=== PATIENT | female | born 1960 | race Caucasian/White ===

== ENCOUNTER 2019-04-09 15:50 | Emergency (ER) | payer MEDICARE ==
[2019-04-09 16:51] LABS: #Lymphocytes 2.3 thou/uL (1.20-3.40); #Monocytes 0.6 thou/uL (0.11-0.59); #Neutrophils 9.7 thou/uL (1.40-6.50); %Basophils 0.1 % (0.0-1.0); %Eosinophils 0.2 % (0.0-10.0); %Monocytes 4.4 % (0.0-10.0); %Neutrophils 77.4 % (42.0-75.0); Hemoglobin 14.7 g/dL (12.0-16.0); Mean Corpuscular HGB CONC 33.5 g/dL (32.0-36.0); Mean Corpuscular Hemoglobin 29.5 pg (27.0-31.0); Mean Corpuscular Volume 87.9 fL (78.0-98.0); Mean Platelet Volume 8.4 fL (7.4-10.4); Platelet Count 334 thou/uL (130-400); RBC Distribution Width 13.8 % (11.5-14.5); Red Blood Cell (RBC) Count 4.99 mill/uL (4.20-5.40); White Blood Cell (WBC) Count 12.6 thou/uL (4.8-10.8)
--- NOTE | 2019-04-09 17:01 | RAD ---
LEFT HIP TWO VIEWS: 04/09/19 HISTORY: Left hip pain. Some slight deformity to the left superior pubic ramus and inferior pubic rami consistent with old in jury. There is also an old fracture of the right inferior pubic ramus. There is no acute findings. IMPRESSION: Old bilateral pubic rami fractures. No acute injury. No significant joint space narrowing. POS: [facility]
[2019-04-09 17:14] LABS: ALT (SGPT) 21 U/L (8-55); AST (SGOT) 16 U/L (5-34); Acetaminophen Less than 6.0 mcg/mL (10.0-30.0); Albumin 4.3 g/dL (3.5-5.0); Alcohol Less than 10 mg/dL (Less than 10); Alkaline Phosphatase 111 U/L (40-110); Anion Gap 17 mmol/L (10-20); BUN (Urea Nitrogen) 16 mg/dL (9.8-20.1); Bilirubin, Total 0.7 mg/dL (0.2-1.2); Calc. Creatinine Clearance 0 mL/min (70-130); Carbon Dioxide 22 mmol/L (22-29); Chloride 102 mmol/L (98-107); Estimated GFR-MDRD 46; Glucose 212 mg/dL (70-105); Potassium 4.4 mmol/L (3.5-5.1); Protein, Total 7.3 g/dL (6.0-8.3); Salicylate Less than 8.0 mg/dL (15.0-30.0); Sodium 137 mmol/L (136-145)
[2019-04-09] MEDS ORDERED: Morphine 10 MG/ML VIAL ONE (17:30)
== END 2019-04-09 18:35 | disposition home or self-care (01) ==
LOC: ERS 15:50
DX: G89.29 Other chronic pain (principal); M25.552 Pain in left hip; I25.10 Atherosclerotic heart disease of native coronary artery without angina pectoris; I10 Essential (primary) hypertension; J40 Bronchitis, not specified as acute or chronic; G47.30 Sleep apnea, unspecified; F32.9 Major depressive disorder, single episode, unspecified; E87.6 Hypokalemia; Z79.899 Other long term (current) drug therapy; Z79.4 Long term (current) use of insulin
CPT/HCPCS: 36415; 80053; 80307; 84443; 85025; J2270

== ENCOUNTER 2019-04-09 19:34 | Emergency (ER) | payer MEDICARE ==
--- NOTE | 2019-04-09 20:22 | CT ---
CT OF BRAIN PERFORMED WITHOUT CONTRAST ENHANCEMENT: 04/09/19 HISTORY: Head injury. COMPARISON: A 01/19/15 study. The ventricular and cisternal system is within normal limits. There are no signs of intracerebral hem orrhage or extra-axial fluid collections. The mastoid air cells and visualized sinuses are clear. IMPRESSION: No acute intracranial abnormalities. POS: [facility]
--- NOTE | 2019-04-09 20:24 | CT ---
CT OF THE CERVICAL SPINE PERFORMED WITHOUT CONTRAST ENHANCEMENT: 04/09/19 HISTORY: Fall getting out of a car with neck pain. Vertebral bodies are normal in height. There is degenerative disc narrowing at C5-6 with posterior os teophytic change at this level. The facets are in normal alignment. There is some mild right sided fo raminal narrowing at the C6-7 level. There is no CT evidence of fracture. Extensive carotid bulb calcifications noted. IMPRESSION: No CT evidence of fracture of the cervical spine. POS: [facility]
--- NOTE | 2019-04-09 20:26 | RAD ---
RIGHT ANKLE THREE VIEWS: 04/09/19 HISTORY: Fall with ankle pain. FINDINGS: Postoperative changes of the fifth metatarsal are noted. Calcaneal spurs are present. There is some m ild arthritic changes of the ankle joint. There is no signs of fracture. IMPRESSION: No acute injury. POS: [facility]
--- NOTE | 2019-04-09 20:27 | RAD ---
RIGHT ELBOW FOUR VIEWS: 04/09/19 HISTORY: Fall with elbow pain. There is no signs of fracture, dislocation or joint effusion. Some minimal spurring of the coronoid p rocess is noted. IMPRESSION: No evidence of fracture. POS: [facility]
--- NOTE | 2019-04-09 20:32 | RAD ---
PORTABLE CHEST: 04/09/19 HISTORY: Fall with right sided chest pain. Heart size and mediastinum are within normal limits. The lungs are clear of any infiltrative process. No significant bony findings. IMPRESSION: No active intrathoracic disease. POS: [facility]
[2019-04-09 20:35] LABS: Bacteria/HPF None Seen HPF (None Seen); Bilirubin Negative (Negative); Blood, Urine Negative (Negative); Clarity Clear (Clear); Glucose, Urine (Dipstick) Normal (Negative); Leukocyte 250 Leu/uL (Negative); Nitrite Negative (Negative); Protein, Urine (Dipstick) Negative (Neg-Trace); RBC/HPF 0-3 HPF (0-3); Squamous Epithelial None Seen HPF (0-3); Urobilinogen Normal mg/dL (Less than 2)
== END 2019-04-09 21:21 | disposition home or self-care (01) ==
LOC: ERS 19:34
DX: S80.811A Abrasion, right lower leg, initial encounter (principal); E11.9 Type 2 diabetes mellitus without complications; I25.10 Atherosclerotic heart disease of native coronary artery without angina pectoris; I10 Essential (primary) hypertension; F32.9 Major depressive disorder, single episode, unspecified; F17.290 Nicotine dependence, other tobacco product, uncomplicated; Z79.899 Other long term (current) drug therapy; Z79.82 Long term (current) use of aspirin; Z79.84 Long term (current) use of oral hypoglycemic drugs; W18.30XA Fall on same level, unspecified, initial encounter
CPT/HCPCS: 36415; 36416; 51701; 70450; 71045; 72125; 80053; 80307; 81003; 81015; 84443; 84484; 85025; 87086; 93005; 96372; J2270

== ENCOUNTER 2025-04-12 05:30 | Inpatient (IN) | payer MEDICARE ==
[2025-04-12 05:57] LABS: #Basophils 0.11 10x3/uL (0.0-0.2); #Eosinophils 0.31 10x3/uL (0.0-0.7); #Monocytes 1.01 10x3/uL (0.11-0.59); #Neutrophils 15.53 10x3/uL (1.40-6.50); %Basophils 0.5 % (0.0-1.0); %Eosinophils 1.5 % (0.0-10.0); %Lymphocytes 15.0 % (21.0-51.0); %Monocytes 5.0 % (0.0-10.0); %Neutrophils 77.2 % (42.0-75.0); Hematocrit 46.2 % (36.0-47.0); Hemoglobin 14.9 g/dL (12.0-16.0); Mean Corpuscular Hemoglobin 27.9 pg (27.0-31.0); Mean Corpuscular Volume 86.4 fL (78.0-98.0); Platelet Count 311 10x3/uL (130-400); Red Blood Cell (RBC) Count 5.35 mill/uL (4.20-5.40); White Blood Cell (WBC) Count 20.14 10x3/uL (4.8-10.8)
[2025-04-12 06:13] LABS: ALT (SGPT) 190 U/L (Less than 34); AST (SGOT) 360 U/L (11-34); Albumin 3.3 g/dL (3.1-4.5); Alkaline Phosphatase 143 U/L (40-110); Anion Gap 24 mmol/L (10-20); BUN (Urea Nitrogen) 28 mg/dL (9.8-20.1); Bilirubin, Total 1.2 mg/dL (0.3-1.2); Calc. Creatinine Clearance 0 mL/min (70-130); Calcium 10.5 mg/dL (7.8-10.44); Carbon Dioxide 21 mmol/L (23-31); Chloride 97 mmol/L (98-107); Globulin 4.1 g/dL (2.4-3.5); Glucose 316 mg/dL (80-115); Potassium 4.4 mmol/L (3.5-5.1); Sodium 138 mmol/L (136-145)
[2025-04-12 07:11] LABS: Bacteria/HPF None Seen HPF (None Seen); CAUTI Indications for Culture Dysuria,urgency,freq; Glucose, Urine (Dipstick) Normal (Negative); Leukocyte Negative Leu/uL (Negative); Protein, Urine (Dipstick) 30 mg/dL (Neg-Trace); RBC/HPF 0-3 HPF (0-3); Specific Gravity, Urine 1.021 (1.002-1.036); WBC/HPF 0-3 HPF (0-3)
[2025-04-12 07:15] LABS: Urine Culture Reflex No No
[2025-04-12 08:10] LABS: Actual Bicarbonate (HCO3v) 24.6 mEq/L (22-28); Analyzer IN Cardio ER; Base Excess -2.0 mEq/L (-2.0 to +3.0); Calcium, Ionized (venous) 1.11 mmol/L (1.16-1.32); Chloride (VBG) 100 mmol/L (98-106); Hematocrit-VBG 44 % (36.0-47.0); Hemoglobin (Hb) 14.8 g/dL (11.7-16.0); Potassium (VBG) 3.68 mmol/L (3.70-5.30); Sodium 140 mmol/L (133-146)
[2025-04-12] MEDS ORDERED: Vancomycin 1 GM/200 ML (FROZEN) BAG ONE (08:19)
[2025-04-12] MEDS ORDERED: Dextrose 50% Abboject 50 ML SYRINGE SLOW IVP PRN (08:42)
[2025-04-12] MEDS ORDERED: Guaifenesin DM 100-10/5 ML UDCUP PO PRN (08:42)
[2025-04-12] MEDS ORDERED: Nitroglycerin 0.4 MG TAB (25 Tab Bottle) SL PRN (08:52)
[2025-04-12] MEDS ORDERED: Vancomycin 1 GM in Premix 1 BAG IVPB SCH (09:00)
[2025-04-12] MEDS ORDERED: Hydrocortisone Sod Succ/PF 100 mg/2 ml Vial ONE (09:03)
[2025-04-12] MEDS ORDERED: KETAMINE 100 MG/ML (5ML VIAL) ONE (09:15)
[2025-04-12] MEDS ORDERED: Rocuronium Bromide 10 MG/ML (10ML VIAL) ONE (09:16)
[2025-04-12] MEDS ORDERED: Norepinephrine 8 MG/0.9% NS 0 ML ONE (09:30)
[2025-04-12] MEDS ORDERED: NOREPINEPHRINE 8 MG/250 ML-D5W 250 ML IVPB SCH ×2 (09:45)
[2025-04-12] MEDS ORDERED: DISCONTINUE PREVIOUS NARCOTIC PAIN MEDICATIONS AND BENZODIAZEPINES FS SCH (10:15)
[2025-04-12] MEDS ORDERED: Propofol BOLUS 1,000 MG/100 ML VIAL IV PRN (10:15)
[2025-04-12] MEDS ORDERED: Fentanyl BOLUS 100 ML IVPB PRN (10:15)
[2025-04-12 10:28] LABS: Actual Bicarbonate (HCO3a) 19.0 mEq/L (22-28); Base Excess (BEa) -6.0 mEq/L (-2.0 to +3.0); CO2 Tension 36.0 mmHg (35.0-45.0); Calcium, Ionized (arterial) 1.13 mmol/L (1.12-1.30); Hematocrit-ABG 43 % (36.0-47.0); Hemoglobin (Hb) 14.7 g/dL (12.0-16.0); O2 Tension (PaO2), arterial 108.7 mmHg (> 80.0); Potassium - ABG Lab 3.38 mmol/L (3.70-5.30); pH, Arterial 7.340 (7.35-7.45)
[2025-04-12 10:32] LABS: ALV-art Gradient 345.400 mmHg (0-20); Puncture Site Left Radial artery
[2025-04-12] MEDS: Pantoprazole 40 MG VIAL IVP SCH (10:32)
[2025-04-12] MEDS: Ventilator Sedation Protocol 1 EACH FS ONE (10:35)
[2025-04-12] MEDS: Hydrocortisone Sod Succ/PF 100 mg/2 ml Vial IVP SCH (10:39)
[2025-04-12] MEDS: Insulin Glargine 30 UNITS/0.3 ML VIAL SC SCH (10:50)
[2025-04-12] MEDS: Acetaminophen 325 MG TAB PO PRN (10:57)
[2025-04-12 11:13] LABS: Cocaine Metabolite Screen Negative (Negative); THC/Cannabinoid Screen Negative (Negative); Tricyclic Screen PRELIM POSITIVE (Negative)
[2025-04-12 12:45] VITALS: BMI 37.3
[2025-04-12] MEDS ORDERED: Piperacillin/Tazobactam 2.25 GM in Sodium Chloride 0.9% 100 ML IVPB SCH (14:00)
[2025-04-12] MEDS: Enoxaparin 30 MG (0.3 mL) SYRINGE SC SCH (14:10)
[2025-04-12] MEDS: DULoxetine 30 MG CAP PO SCH (22:02)
[2025-04-13] MEDS ORDERED: Etomidate 40 MG (20 mL) VIAL ONE
[2025-04-13] MEDS: Enoxaparin 40 MG (0.4 mL) SYRINGE SC SCH (08:32)
[2025-04-13] MEDS: Pantoprazole 40 MG VIAL IVP SCH (08:33)
[2025-04-13 08:39] LABS: #Basophils 0.03 10x3/uL (0.0-0.2); #Eosinophils Less than 0.03 10x3/uL (0.0-0.7); #Monocytes 0.41 10x3/uL (0.11-0.59); #Neutrophils 16.05 10x3/uL (1.40-6.50); %Basophils 0.2 % (0.0-1.0); %Eosinophils 0.0 % (0.0-10.0); %Lymphocytes 2.9 % (21.0-51.0); %Monocytes 2.4 % (0.0-10.0); %Neutrophils 94.0 % (42.0-75.0); Hematocrit 36.0 % (36.0-47.0); Hemoglobin 11.3 g/dL (12.0-16.0); Mean Corpuscular Hemoglobin 27.5 pg (27.0-31.0); Mean Corpuscular Volume 87.6 fL (78.0-98.0); Platelet Count 269 10x3/uL (130-400); Red Blood Cell (RBC) Count 4.11 mill/uL (4.20-5.40); White Blood Cell (WBC) Count 17.06 10x3/uL (4.8-10.8)
[2025-04-13 08:46] LABS: ALT (SGPT) 109 U/L (Less than 34); AST (SGOT) 104 U/L (11-34); Albumin 2.2 g/dL (3.1-4.5); Alkaline Phosphatase 107 U/L (40-110); Anion Gap 18 mmol/L (10-20); BUN (Urea Nitrogen) 20 mg/dL (9.8-20.1); Bilirubin, Total 0.4 mg/dL (0.3-1.2); CK (CPK) 3102 U/L (29-168); Calc. Creatinine Clearance 92 mL/min (70-130); Calcium 8.5 mg/dL (7.8-10.44); Carbon Dioxide 17 mmol/L (23-31); Chloride 112 mmol/L (98-107); Globulin 3.1 g/dL (2.4-3.5); Glucose 358 mg/dL (80-115); Potassium 4.2 mmol/L (3.5-5.1); Sodium 143 mmol/L (136-145)
[2025-04-13 21:12] LABS: Legionella Urinary Ag Negative (Negative); Strep pneumo Urine Ag NEGATIVE (NEGATIVE)
[2025-04-13] MEDS: hydrALAZINE 20 MG/ML VIAL SLOW IVP PRN (21:23)
[2025-04-13] MEDS: Insulin Glargine 30 UNITS/0.3 ML VIAL SC SCH (21:38)
[2025-04-13 23:01] LABS: Base Excess (BEa) -6.9 mEq/L (-2.0 to +3.0); Calcium, Ionized (arterial) 1.23 mmol/L (1.12-1.30); Hematocrit-ABG 42 % (36.0-47.0); Hemoglobin (Hb) 14.3 g/dL (12.0-16.0); Potassium - ABG Lab 3.84 mmol/L (3.70-5.30); pH, Arterial 7.463 (7.35-7.45)
[2025-04-13 23:02] LABS: CO2 Tension 20.5 mmHg (35.0-45.0); O2 Tension (PaO2), arterial 54.5 mmHg (> 80.0)
[2025-04-13 23:03] LABS: ALV-art Gradient 119.515 mmHg (0-20); Actual Bicarbonate (HCO3a) 14.4 mEq/L (22-28); Puncture Site Right Radial artery
[2025-04-13] MEDS ORDERED: Sodium Bicarb 50 MEQ/50 ML Abboject 8.4% SYRINGE IVP SCH (23:15)
[2025-04-13 23:38] LABS: #Basophils 0.05 10x3/uL (0.0-0.2); #Eosinophils 0.51 10x3/uL (0.0-0.7); #Monocytes 0.67 10x3/uL (0.11-0.59); #Neutrophils 18.72 10x3/uL (1.40-6.50); %Basophils 0.2 % (0.0-1.0); %Eosinophils 2.5 % (0.0-10.0); %Lymphocytes 3.1 % (21.0-51.0); %Monocytes 3.2 % (0.0-10.0); %Neutrophils 90.4 % (42.0-75.0); Hematocrit 40.1 % (36.0-47.0); Hemoglobin 13.2 g/dL (12.0-16.0); Mean Corpuscular Hemoglobin 28.3 pg (27.0-31.0); Mean Corpuscular Volume 85.9 fL (78.0-98.0); Platelet Count 368 10x3/uL (130-400); Red Blood Cell (RBC) Count 4.67 mill/uL (4.20-5.40); White Blood Cell (WBC) Count 20.72 10x3/uL (4.8-10.8)
[2025-04-13] MEDS: Etomidate 40 MG (20 mL) VIAL IVP SCH (23:40)
[2025-04-13] MEDS ORDERED: Ventilator Sedation Protocol 1 EACH FS SCH (23:45)
[2025-04-13] MEDS ORDERED: Propofol BOLUS 1,000 MG/100 ML VIAL IV PRN (23:45)
[2025-04-13] MEDS ORDERED: Fentanyl BOLUS 100 ML IVPB PRN (23:45)
[2025-04-13] MEDS ORDERED: DISCONTINUE PREVIOUS NARCOTIC PAIN MEDICATIONS AND BENZODIAZEPINES FS SCH (23:45)
[2025-04-14 00:35] LABS: ALT (SGPT) 124 U/L (Less than 34); AST (SGOT) 108 U/L (11-34); Albumin 2.6 g/dL (3.1-4.5); Alkaline Phosphatase 116 U/L (40-110); Anion Gap 23 mmol/L (10-20); BUN (Urea Nitrogen) 22 mg/dL (9.8-20.1); Bilirubin, Total 0.9 mg/dL (0.3-1.2); Calc. Creatinine Clearance 93 mL/min (70-130); Calcium 9.5 mg/dL (7.8-10.44); Carbon Dioxide 15 mmol/L (23-31); Chloride 114 mmol/L (98-107); Globulin 3.7 g/dL (2.4-3.5); Glucose 336 mg/dL (80-115); Potassium 3.8 mmol/L (3.5-5.1); Sodium 148 mmol/L (136-145)
[2025-04-14] MEDS: Sodium Bicarb 50 MEQ/50 ML Abboject 8.4% SYRINGE IVP SCH (02:02)
[2025-04-14 03:11] LABS: Actual Bicarbonate (HCO3a) 21.5 mEq/L (22-28); Base Excess (BEa) -1.2 mEq/L (-2.0 to +3.0); CO2 Tension 30.7 mmHg (35.0-45.0); Calcium, Ionized (arterial) 1.23 mmol/L (1.12-1.30); Hematocrit-ABG 40 % (36.0-47.0); Hemoglobin (Hb) 13.5 g/dL (12.0-16.0); O2 Tension (PaO2), arterial 71.7 mmHg (> 80.0); Potassium - ABG Lab 3.85 mmol/L (3.70-5.30); Puncture Site Right Radial artery; pH, Arterial 7.464 (7.35-7.45)
[2025-04-14 03:12] LABS: ALV-art Gradient 246.425 mmHg (0-20)
[2025-04-14 03:34] LABS: Hb (HGBA1c) 3604.7525 umol/L
[2025-04-14 04:20] LABS: ALT (SGPT) 112 U/L (Less than 34); AST (SGOT) 113 U/L (11-34); Albumin 2.5 g/dL (3.1-4.5); Alkaline Phosphatase 103 U/L (40-110); Anion Gap 18 mmol/L (10-20); BUN (Urea Nitrogen) 23 mg/dL (9.8-20.1); Bilirubin, Total 1.1 mg/dL (0.3-1.2); Calc. Creatinine Clearance 104 mL/min (70-130); Calcium 9.2 mg/dL (7.8-10.44); Carbon Dioxide 20 mmol/L (23-31); Cardiac Risk 9.4 (Less than 4.5); Chloride 114 mmol/L (98-107); Cholesterol 188 mg/dl (< 200 Desired); Globulin 3.3 g/dL (2.4-3.5); Glucose 381 mg/dL (80-115); HDL Cholesterol 20 mg/dL (>60 Neg Risk); Magnesium 1.6 mg/dL (1.6-2.6); Potassium 3.9 mmol/L (3.5-5.1); Sodium 148 mmol/L (136-145); Triglycerides 515 mg/dL (Less than 150)
[2025-04-14 08:23] LABS: CK (CPK) 3120 U/L (29-168)
[2025-04-14] MEDS: Midazolam In 0.9 % NaCl/PF 100 ML IV SCH (16:08)
[2025-04-14] MEDS: Insulin Glargine 30 UNITS/0.3 ML VIAL SC SCH (21:32)
[2025-04-15 02:43] LABS: Influenza A by NAA Not Detected (NotDetected); Influenza B by NAA Not Detected (NotDetected); SARS-CoV-2 NAA Rapid Test Not Detected (NotDetected)
[2025-04-15 03:22] LABS: #Basophils 0.04 10x3/uL (0.0-0.2); #Eosinophils Less than 0.03 10x3/uL (0.0-0.7); #Monocytes 0.81 10x3/uL (0.11-0.59); #Neutrophils 12.39 10x3/uL (1.40-6.50); %Basophils 0.3 % (0.0-1.0); %Eosinophils 0.1 % (0.0-10.0); %Lymphocytes 5.4 % (21.0-51.0); %Monocytes 5.7 % (0.0-10.0); %Neutrophils 86.5 % (42.0-75.0); Hematocrit 41.0 % (36.0-47.0); Hemoglobin 13.0 g/dL (12.0-16.0); Mean Corpuscular Hemoglobin 27.4 pg (27.0-31.0); Mean Corpuscular Volume 86.3 fL (78.0-98.0); Platelet Count 270 10x3/uL (130-400); Red Blood Cell (RBC) Count 4.75 mill/uL (4.20-5.40); White Blood Cell (WBC) Count 14.30 10x3/uL (4.8-10.8)
[2025-04-15 03:59] LABS: Anion Gap 19 mmol/L (10-20); BUN (Urea Nitrogen) 19 mg/dL (9.8-20.1); CK (CPK) 727 U/L (29-168); Calc. Creatinine Clearance 109 mL/min (70-130); Calcium 9.8 mg/dL (7.8-10.44); Carbon Dioxide 23 mmol/L (23-31); Chloride 113 mmol/L (98-107); Glucose 218 mg/dL (80-115); Potassium 3.5 mmol/L (3.5-5.1); Sodium 151 mmol/L (136-145)
[2025-04-15 06:59] LABS: Actual Bicarbonate (HCO3a) 26.0 mEq/L (22-28); Base Excess (BEa) 3.6 mEq/L (-2.0 to +3.0); CO2 Tension 32.6 mmHg (35.0-45.0); Calcium, Ionized (arterial) 1.23 mmol/L (1.12-1.30); Hematocrit-ABG 40 % (36.0-47.0); Hemoglobin (Hb) 13.5 g/dL (12.0-16.0); O2 Tension (PaO2), arterial 102.6 mmHg (> 80.0); Potassium - ABG Lab 3.13 mmol/L (3.70-5.30); pH, Arterial 7.520 (7.35-7.45)
[2025-04-15 07:01] LABS: ALV-art Gradient 213.150 mmHg (0-20); Puncture Site Right Radial artery
[2025-04-15] MEDS: Losartan 25 MG TAB PO SCH (19:12)
[2025-04-16 05:56] LABS: #Basophils 0.04 10x3/uL (0.0-0.2); #Eosinophils Less than 0.03 10x3/uL (0.0-0.7); #Monocytes 0.93 10x3/uL (0.11-0.59); #Neutrophils 9.33 10x3/uL (1.40-6.50); %Basophils 0.3 % (0.0-1.0); %Eosinophils 0.1 % (0.0-10.0); %Lymphocytes 8.7 % (21.0-51.0); %Monocytes 8.1 % (0.0-10.0); %Neutrophils 81.0 % (42.0-75.0); Anion Gap 14 mmol/L (10-20); BUN (Urea Nitrogen) 15 mg/dL (9.8-20.1); Calc. Creatinine Clearance 133 mL/min (70-130); Calcium 8.7 mg/dL (7.8-10.44); Carbon Dioxide 25 mmol/L (23-31); Chloride 106 mmol/L (98-107); Glucose 142 mg/dL (80-115); Hematocrit 39.7 % (36.0-47.0); Hemoglobin 12.8 g/dL (12.0-16.0); Mean Corpuscular Hemoglobin 27.2 pg (27.0-31.0); Mean Corpuscular Volume 84.5 fL (78.0-98.0); Platelet Count 286 10x3/uL (130-400); Potassium 3.1 mmol/L (3.5-5.1); Red Blood Cell (RBC) Count 4.70 mill/uL (4.20-5.40); Sodium 142 mmol/L (136-145); White Blood Cell (WBC) Count 11.52 10x3/uL (4.8-10.8)
[2025-04-16] MEDS: Losartan 25 MG TAB PO SCH (09:56)
[2025-04-17 03:32] LABS: #Basophils 0.06 10x3/uL (0.0-0.2); #Eosinophils Less than 0.03 10x3/uL (0.0-0.7); #Monocytes 0.58 10x3/uL (0.11-0.59); #Neutrophils 6.45 10x3/uL (1.40-6.50); %Basophils 0.7 % (0.0-1.0); %Eosinophils 0.2 % (0.0-10.0); %Lymphocytes 13.1 % (21.0-51.0); %Monocytes 6.8 % (0.0-10.0); %Neutrophils 75.7 % (42.0-75.0); Hematocrit 41.3 % (36.0-47.0); Hemoglobin 13.3 g/dL (12.0-16.0); Mean Corpuscular Hemoglobin 27.4 pg (27.0-31.0); Mean Corpuscular Volume 85.0 fL (78.0-98.0); Platelet Count 245 10x3/uL (130-400); Red Blood Cell (RBC) Count 4.86 mill/uL (4.20-5.40); White Blood Cell (WBC) Count 8.53 10x3/uL (4.8-10.8)
[2025-04-17 03:53] LABS: ALT (SGPT) 63 U/L (Less than 34); AST (SGOT) 19 U/L (11-34); Albumin 2.4 g/dL (3.1-4.5); Alkaline Phosphatase 82 U/L (40-110); Anion Gap 16 mmol/L (10-20); BUN (Urea Nitrogen) 15 mg/dL (9.8-20.1); Bilirubin, Total 0.4 mg/dL (0.3-1.2); Calc. Creatinine Clearance 145 mL/min (70-130); Calcium 8.7 mg/dL (7.8-10.44); Carbon Dioxide 22 mmol/L (23-31); Chloride 109 mmol/L (98-107); Globulin 3.2 g/dL (2.4-3.5); Glucose 215 mg/dL (80-115); Potassium 3.1 mmol/L (3.5-5.1); Sodium 144 mmol/L (136-145)
[2025-04-17] MEDS ORDERED: Electrolyte Replacement Protocol 1 EACH FS PRN (04:15)
[2025-04-17] MEDS: Magnesium 2 GM/50 ML(in water) Premix IVPB SCH (04:43)
[2025-04-17] MEDS: Furosemide 40 MG (4 mL) VIAL IVP SCH (05:50)
[2025-04-17 10:37] LABS: Potassium 3.3 mmol/L (3.5-5.1)
[2025-04-17] MEDS: Senokot S 8.6-50 MG TAB PO SCH (10:55)
[2025-04-17] MEDS: Potassium Bicarbonate/Cit Ac 20 MEQ TAB PER TUBE SCH (14:47)
[2025-04-17] MEDS: Norepinephrine 8 MG/0.9% NS 250 ML IVPB SCH (16:33)
[2025-04-18 04:15] LABS: #Basophils 0.03 10x3/uL (0.0-0.2); #Eosinophils Less than 0.03 10x3/uL (0.0-0.7); #Monocytes 0.41 10x3/uL (0.11-0.59); #Neutrophils 9.42 10x3/uL (1.40-6.50); %Basophils 0.3 % (0.0-1.0); %Eosinophils 0.1 % (0.0-10.0); %Lymphocytes 7.5 % (21.0-51.0); %Monocytes 3.7 % (0.0-10.0); %Neutrophils 85.1 % (42.0-75.0); Hematocrit 40.9 % (36.0-47.0); Hemoglobin 13.1 g/dL (12.0-16.0); Mean Corpuscular Hemoglobin 27.2 pg (27.0-31.0); Mean Corpuscular Volume 84.9 fL (78.0-98.0); Platelet Count 281 10x3/uL (130-400); Red Blood Cell (RBC) Count 4.82 mill/uL (4.20-5.40); White Blood Cell (WBC) Count 11.07 10x3/uL (4.8-10.8)
[2025-04-18 04:34] LABS: Anion Gap 15 mmol/L (10-20); BUN (Urea Nitrogen) 13 mg/dL (9.8-20.1); Calc. Creatinine Clearance 147 mL/min (70-130); Calcium 8.3 mg/dL (7.8-10.44); Carbon Dioxide 25 mmol/L (23-31); Chloride 109 mmol/L (98-107); Glucose 155 mg/dL (80-115); Potassium 3.5 mmol/L (3.5-5.1); Sodium 145 mmol/L (136-145)
[2025-04-18] MEDS: Potassium Chloride 20 MEQ in Premix 1 BAG IVPB SCH (08:27)
[2025-04-18 15:25] LABS: Potassium 3.9 mmol/L (3.5-5.1)
[2025-04-19] MEDS: Glucagon 1 MG/ML KIT IM PRN (14:30)
[2025-04-19] MEDS: Melatonin 3 MG TAB PO PRN (20:39)
[2025-04-19] MEDS: Insulin Glargine 30 UNITS/0.3 ML VIAL SC SCH (20:50)
[2025-04-20 06:00] LABS: #Basophils 0.06 10x3/uL (0.0-0.2); #Eosinophils 0.14 10x3/uL (0.0-0.7); #Monocytes 1.08 10x3/uL (0.11-0.59); #Neutrophils 7.78 10x3/uL (1.40-6.50); %Basophils 0.5 % (0.0-1.0); %Eosinophils 1.2 % (0.0-10.0); %Lymphocytes 20.4 % (21.0-51.0); %Monocytes 9.0 % (0.0-10.0); %Neutrophils 64.4 % (42.0-75.0); Hematocrit 42.1 % (36.0-47.0); Hemoglobin 13.5 g/dL (12.0-16.0); Mean Corpuscular Hemoglobin 27.2 pg (27.0-31.0); Mean Corpuscular Volume 84.9 fL (78.0-98.0); Platelet Count 378 10x3/uL (130-400); Red Blood Cell (RBC) Count 4.96 mill/uL (4.20-5.40); White Blood Cell (WBC) Count 12.06 10x3/uL (4.8-10.8)
[2025-04-20 16:50] LABS: Bacteria/HPF None Seen HPF (None Seen); CAUTI Indications for Culture Dysuria,urgency,freq; Glucose, Urine (Dipstick) Normal (Negative); Leukocyte Negative Leu/uL (Negative); Protein, Urine (Dipstick) Negative (Neg-Trace); RBC/HPF 0-3 HPF (0-3); Specific Gravity, Urine 1.011 (1.002-1.036)
[2025-04-20 16:51] LABS: Urine Culture Reflex No No
[2025-04-21] MEDS: Ondansetron PF 4 MG/2 ML Vial IVP PRN (01:41)
[2025-04-21 06:12] LABS: #Basophils 0.05 10x3/uL (0.0-0.2); #Eosinophils 0.05 10x3/uL (0.0-0.7); #Monocytes 1.00 10x3/uL (0.11-0.59); #Neutrophils 9.13 10x3/uL (1.40-6.50); %Basophils 0.4 % (0.0-1.0); %Eosinophils 0.4 % (0.0-10.0); %Lymphocytes 16.2 % (21.0-51.0); %Monocytes 8.0 % (0.0-10.0); %Neutrophils 72.7 % (42.0-75.0); Hematocrit 42.4 % (36.0-47.0); Hemoglobin 13.3 g/dL (12.0-16.0); Mean Corpuscular Hemoglobin 27.2 pg (27.0-31.0); Mean Corpuscular Volume 86.7 fL (78.0-98.0); Platelet Count 389 10x3/uL (130-400); Red Blood Cell (RBC) Count 4.89 mill/uL (4.20-5.40); White Blood Cell (WBC) Count 12.56 10x3/uL (4.8-10.8)
[2025-04-21 06:25] LABS: ALT (SGPT) 45 U/L (Less than 34); AST (SGOT) 22 U/L (11-34); Albumin 2.7 g/dL (3.1-4.5); Alkaline Phosphatase 85 U/L (40-110); Anion Gap 14 mmol/L (10-20); BUN (Urea Nitrogen) 13 mg/dL (9.8-20.1); Bilirubin, Total 0.7 mg/dL (0.3-1.2); Calc. Creatinine Clearance 109 mL/min (70-130); Calcium 8.9 mg/dL (7.8-10.44); Carbon Dioxide 24 mmol/L (23-31); Chloride 107 mmol/L (98-107); Globulin 3.2 g/dL (2.4-3.5); Glucose 247 mg/dL (80-115); Magnesium 1.2 mg/dL (1.6-2.6); Potassium 3.9 mmol/L (3.5-5.1); Sodium 141 mmol/L (136-145)
[2025-04-21] MEDS: Magnesium Sulfate In Water 4 GM in Premix 1 BAG IVPB SCH (08:50)
[2025-04-21 15:31] VITALS: BMI 37.5
[2025-04-21] MEDS: Insulin Glargine 30 UNITS/0.3 ML VIAL SC SCH (21:34)
[2025-04-22] MEDS: Calcium Carbonate 500 MG ChewTAB PO PRN (01:43)
[2025-04-22 05:13] LABS: #Basophils 0.03 10x3/uL (0.0-0.2); #Eosinophils 0.03 10x3/uL (0.0-0.7); #Monocytes 0.69 10x3/uL (0.11-0.59); #Neutrophils 11.52 10x3/uL (1.40-6.50); %Basophils 0.2 % (0.0-1.0); %Eosinophils 0.2 % (0.0-10.0); %Lymphocytes 7.8 % (21.0-51.0); %Monocytes 5.1 % (0.0-10.0); %Neutrophils 84.9 % (42.0-75.0); Hematocrit 40.7 % (36.0-47.0); Hemoglobin 13.2 g/dL (12.0-16.0); Mean Corpuscular Hemoglobin 28.1 pg (27.0-31.0); Mean Corpuscular Volume 86.8 fL (78.0-98.0); Platelet Count 379 10x3/uL (130-400); Red Blood Cell (RBC) Count 4.69 mill/uL (4.20-5.40); White Blood Cell (WBC) Count 13.58 10x3/uL (4.8-10.8)
[2025-04-22 05:26] LABS: Anion Gap 15 mmol/L (10-20); BUN (Urea Nitrogen) 12 mg/dL (9.8-20.1); Calc. Creatinine Clearance 113 mL/min (70-130); Calcium 9.3 mg/dL (7.8-10.44); Carbon Dioxide 26 mmol/L (23-31); Chloride 106 mmol/L (98-107); Glucose 244 mg/dL (80-115); Magnesium 1.6 mg/dL (1.6-2.6); Potassium 4.2 mmol/L (3.5-5.1); Sodium 143 mmol/L (136-145)
[2025-04-22] MEDS: Magnesium 2 GM/50 ML(in water) 2 GM in Premix 1 BAG IVPB SCH (10:53)
[2025-04-22] MEDS: Morphine IR 10 MG/5 ML UDCUP PO PRN (12:53)
[2025-04-23 06:32] LABS: #Basophils 0.05 10x3/uL (0.0-0.2); #Eosinophils 0.07 10x3/uL (0.0-0.7); #Monocytes 1.15 10x3/uL (0.11-0.59); #Neutrophils 9.42 10x3/uL (1.40-6.50); %Basophils 0.4 % (0.0-1.0); %Eosinophils 0.5 % (0.0-10.0); %Lymphocytes 16.8 % (21.0-51.0); %Monocytes 8.8 % (0.0-10.0); %Neutrophils 72.5 % (42.0-75.0); Hematocrit 39.5 % (36.0-47.0); Hemoglobin 12.1 g/dL (12.0-16.0); Mean Corpuscular Hemoglobin 27.6 pg (27.0-31.0); Mean Corpuscular Volume 90.0 fL (78.0-98.0); Platelet Count 366 10x3/uL (130-400); Red Blood Cell (RBC) Count 4.39 mill/uL (4.20-5.40); White Blood Cell (WBC) Count 13.00 10x3/uL (4.8-10.8)
[2025-04-23 06:46] LABS: Anion Gap 13 mmol/L (10-20); BUN (Urea Nitrogen) 12 mg/dL (9.8-20.1); Calc. Creatinine Clearance 106 mL/min (70-130); Calcium 9.0 mg/dL (7.8-10.44); Carbon Dioxide 30 mmol/L (23-31); Chloride 107 mmol/L (98-107); Glucose 110 mg/dL (80-115); Magnesium 1.6 mg/dL (1.6-2.6); Potassium 3.4 mmol/L (3.5-5.1); Sodium 147 mmol/L (136-145)
[2025-04-23] MEDS: Magnesium 2 GM/50 ML(in water) 2 GM in Premix 1 BAG IVPB SCH (09:20)
[2025-04-23] MEDS: predniSONE 20 MG TAB PO SCH (09:21)
[2025-04-23 14:21] LABS: Potassium 3.5 mmol/L (3.5-5.1)
[2025-04-23] MEDS: Ondansetron PF 4 MG/2 ML Vial IVP SCH (21:24)
[2025-04-24] MEDS: Sodium Chloride 0.65% Nasal 44 ML BOT EA NARE PRN (03:28)
[2025-04-24 04:24] LABS: #Basophils 0.07 10x3/uL (0.0-0.2); #Eosinophils 0.30 10x3/uL (0.0-0.7); #Monocytes 1.60 10x3/uL (0.11-0.59); #Neutrophils 8.35 10x3/uL (1.40-6.50); %Basophils 0.5 % (0.0-1.0); %Eosinophils 2.1 % (0.0-10.0); %Lymphocytes 25.6 % (21.0-51.0); %Monocytes 11.4 % (0.0-10.0); %Neutrophils 59.6 % (42.0-75.0); Hematocrit 42.4 % (36.0-47.0); Hemoglobin 13.1 g/dL (12.0-16.0); Mean Corpuscular Hemoglobin 27.8 pg (27.0-31.0); Mean Corpuscular Volume 89.8 fL (78.0-98.0); Platelet Count 342 10x3/uL (130-400); Red Blood Cell (RBC) Count 4.72 mill/uL (4.20-5.40); White Blood Cell (WBC) Count 14.01 10x3/uL (4.8-10.8)
[2025-04-24 04:38] LABS: Anion Gap 16 mmol/L (10-20); BUN (Urea Nitrogen) 11 mg/dL (9.8-20.1); Calc. Creatinine Clearance 100 mL/min (70-130); Calcium 8.9 mg/dL (7.8-10.44); Carbon Dioxide 26 mmol/L (23-31); Chloride 108 mmol/L (98-107); Glucose 80 mg/dL (80-115); Magnesium 1.6 mg/dL (1.6-2.6); Potassium 3.5 mmol/L (3.5-5.1); Sodium 146 mmol/L (136-145)
[2025-04-24] MEDS: Magnesium 2 GM/50 ML(in water) 2 GM in Premix 1 BAG IVPB SCH (08:08)
[2025-04-24] MEDS: Metoprolol Succinate XL 25 MG ER.TAB PO SCH (08:08)
[2025-04-24] MEDS: Pantoprazole 40 MG DR.TAB PO SCH (08:08)
[2025-04-24] MEDS: Furosemide 40 MG TAB PO SCH (08:09)
[2025-04-24] MEDS ORDERED: Insulin Glargine 30 UNITS/0.3 ML VIAL SC SCH (10:24)
[2025-04-24 12:08] VITALS: BP 112/67; TEMP 98.2
== END 2025-04-24 15:22 | disposition home or self-care (01) | DRG 870 ==
LOC: ERS 05:30 → ERHOLD 08:15 → CCU 09:46 → T4-B 04-19 15:40
PROVIDERS: ADMIT Internal Medicine; ATTEND Internal Medicine
PROC: 3E03329 Introduction of Other Anti-infective into Peripheral Vein, Percutaneous Approach (ICD-10-PCS; principal; 2025-04-12)
PROC: 5A1955Z Respiratory Ventilation, Greater than 96 Consecutive Hours (ICD-10-PCS; 2025-04-12)
PROC: 3E033XZ Introduction of Vasopressor into Peripheral Vein, Percutaneous Approach (ICD-10-PCS; 2025-04-12)
PROC: 0T9B70Z Drainage of Bladder with Drainage Device, Via Natural or Artificial Opening (ICD-10-PCS; 2025-04-12)
PROC: 0BH17EZ Insertion of Endotracheal Airway into Trachea, Via Natural or Artificial Opening (ICD-10-PCS; 2025-04-12)
PROC: 4A133R1 Monitoring of Arterial Saturation, Peripheral, Percutaneous Approach (ICD-10-PCS; 2025-04-12)
DX: A41.9 Sepsis, unspecified organism (principal); J96.01 Acute respiratory failure with hypoxia; J69.0 Pneumonitis due to inhalation of food and vomit; G93.41 Metabolic encephalopathy; E27.40 Unspecified adrenocortical insufficiency; N17.9 Acute kidney failure, unspecified; E87.20 Acidosis, unspecified; M62.82 Rhabdomyolysis; E27.1 Primary adrenocortical insufficiency; E87.0 Hyperosmolality and hypernatremia; E87.6 Hypokalemia; J44.9 Chronic obstructive pulmonary disease, unspecified; I25.10 Atherosclerotic heart disease of native coronary artery without angina pectoris; E03.9 Hypothyroidism, unspecified; R65.20 Severe sepsis without septic shock; E78.5 Hyperlipidemia, unspecified; F17.210 Nicotine dependence, cigarettes, uncomplicated; K52.9 Noninfective gastroenteritis and colitis, unspecified; I95.9 Hypotension, unspecified; E66.9 Obesity, unspecified; G89.4 Chronic pain syndrome; N18.9 Chronic kidney disease, unspecified; Z96.641 Presence of right artificial hip joint; F32.A Depression, unspecified; F11.90 Opioid use, unspecified, uncomplicated; E83.42 Hypomagnesemia; F41.9 Anxiety disorder, unspecified; E11.65 Type 2 diabetes mellitus with hyperglycemia; I12.9 Hypertensive chronic kidney disease with stage 1 through stage 4 chronic kidney disease, or unspecified chronic kidney disease; Z79.4 Long term (current) use of insulin; Z79.899 Other long term (current) drug therapy; Z88.8 Allergy status to other drugs, medicaments and biological substances; Z90.49 Acquired absence of other specified parts of digestive tract; Z98.890 Other specified postprocedural states; Z95.5 Presence of coronary angioplasty implant and graft; Z90.710 Acquired absence of both cervix and uterus; Z79.2 Long term (current) use of antibiotics; Z88.1 Allergy status to other antibiotic agents; Z79.890 Hormone replacement therapy; Z68.37 Body mass index [BMI] 37.0-37.9, adult
CPT/HCPCS: 31500; 36415; 36416; 36600; 51701; 70450; 71045; 71250; 74177; 76705; 80048; 80053; 80061; 80306; 81001; 82010; 82550; 82805; 83036; 83605; 83690; 83735; 84100; 84145; 84443; 84484; 85025; 86141; 87040; 87081; 87086; 87149; 87449; 87636; 87899; 93005; 94002; 94003; 94640; 94760; 96361; 96365; 96366; J0360; J1611; J1630; J1650; J1720; J1815; J1940; J2060; J2250; J2270; J2470; J2543; J2550; J2704; J2919; J3010; J3360; J3373; J3475; J3480; J7030; J7120; J7512